=== PATIENT | male | born 1960 | race Caucasian/White ===

== ENCOUNTER 2017-01-26 17:26 | Emergency (ER) | payer BC ==
--- NOTE | 2017-01-26 18:28 | UC ---
Throat Pain/Nasal Lenny HPI - HPI Summary HPI Summary: complaint of nasal congestion and cough that started approx 5-6 days ago denies fever , sore throat, headaches symptoms of congestion started to resolve yesterday taking OTC colc medication and cough drops with relief needs a note to return to work - History of Current Complaint Chief Complaint: UCGeneralIllness Stated Complaint: HEAD AND CHEST COLD Time Seen by Provider: 01/26/17 18:21 Hx Obtained From: Patient - Allergies/Home Medications Allergies/Adverse Reactions: Allergies Allergy/AdvReac Type Severity Reaction Status Date / Time No Known Allergies Allergy Verified 01/26/17 18:10 Home Medications: Home Medications Aspirin TAB* [Aspirin 325 MG TAB*] 325 mg PO DAILY 01/26/17 [History Confirmed 01/26/17] Multivitamins/Minerals TAB* [Thera M Plus TAB*] 1 tab PO DAILY 01/26/17 [ History Confirmed 01/26/17] Omeprazole CAP* [Prilosec CAP* 20 MG] 20 mg PO DAILY 01/26/17 [History Confirmed 01/26/17] [id number] W/ APAP [Vicks Dayquil Severe Cold] 1 tab PO Q6H PRN [History Confirmed 01/26/17] PMH/Surg Hx/FS Hx/Imm Hx Previously Healthy: Yes Cardiovascular History Of: Reports: Cardiac Disorders, Hypertension - Surgical History Surgical History: Yes Surgery Procedure, Year, and Place: 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 - Family History Known Family History: Positive: Cardiac Disease - father with ACD, Hypertension - father Negative: Diabetes - Social History Occupation: Employed Full-time Lives: With Family Alcohol Use: Occasionally Substance Use Type: None Smoking Status (MU): Former Smoker Type: Cigarettes Length of Time of Smoking/Using Tobacco: 12 years When Did the Patient Quit Smoking/Using Tobacco: 2003 Review of Systems Constitutional: Negative Skin: Negative Eyes: Negative ENT: Nasal Discharge Respiratory: Negative Cardiovascular: Negative Gastrointestinal: Negative Genitourinary: Negative Motor: Negative Neurovascular: Negative Musculoskeletal: Negative Neurological: Negative Psychological: Negative All Other Systems Reviewed And Are Negative: Yes Physical Exam Triage Information Reviewed: Yes Appearance: Well-Appearing, No Pain Distress, Well-Nourished Vital Signs: Initial Vital Signs Temp 97.9 F 01/26/17 18:11 Pulse 113 01/26/17 18:11 Resp 16 01/26/17 18:11 BP 160/96 01/26/17 18:11 Pulse Ox 97 01/26/17 18:11 Vital Signs Reviewed: Yes Eyes: Positive: Conjunctiva Clear ENT: Positive: Pharynx normal, Nasal congestion, Nasal drainage, TMs normal Neck: Positive: Supple, No Lymphadenopathy Respiratory: Positive: Lungs clear, Normal breath sounds, No respiratory distress, No accessory muscle use Cardiovascular: Positive: No Murmur, Pulses Normal, Brisk Capillary Refill, Tachycardia Abdomen Description: Positive: Nontender, Soft Bowel Sounds: Positive: Present Musculoskeletal: Positive: No Edema Neurological Exam: Normal Psychological Exam: Normal Skin Exam: Normal Throat Pain/Nasal Course/Dx - Course Course Of Treatment: discussed patient's elevated blood pressure and heartrate. he states he will followup with his PCP about this tomorrow and refuses further evaluation at this time. - Differential Dx/Diagnosis Differential Diagnosis/HQI/PQRI: URI Provider Diagnoses: URI,. uncontrolled HTN, tachycardia Discharge - Discharge Plan Condition: Stable Disposition: HOME Patient Education Materials: Hypertension (ED), Upper Respiratory Infection (ED ) Forms: *Work Release Referrals: Anand Red MD [Medical Doctor] - Additional Instructions: It is extremely important that you call your primary care provider tomorrow for further evaluation and treatment of your blood pressure and elevated heartrate. If you develop any symptoms for example shortness of breath chest pain dizziness or nausea please call 911 or go to the emergency department. Please review your discharge instructions. If your symptoms do not improve please call your primary care provider or return to urgent care
[2017-01-26 19:02] VITALS: BP 150/92
== END 2017-01-26 19:04 | disposition home or self-care (01) ==
LOC: UCCORT 17:26
DX: J06.9 Acute upper respiratory infection, unspecified (principal); I10 Essential (primary) hypertension; R00.0 Tachycardia, unspecified; Z79.82 Long term (current) use of aspirin; Z95.1 Presence of aortocoronary bypass graft; Z87.891 Personal history of nicotine dependence
CPT/HCPCS: 99202; G0463